=== PATIENT | female | born 1985 ===

== ENCOUNTER 2020-08-15 13:54 | Emergency (ER) | payer OTHER, SELFPAY ==
[2020-08-15 14:08] VITALS: BP 103/65; PULSE 74; RESP 20; TEMP 37.2; O2SAT 99
[2020-08-15 19:47] VITALS: BP 108/58; PULSE 80; RESP 14; TEMP 37.1; O2SAT 98
--- NOTE | 2020-08-15 19:47 | ED.EXTPRO ---
HPI - Extremity Problem General Chief complaint: Extremity Problem,Nontraumatic Stated complaint: PAIN IN BOTH ARMS Time Seen by Provider: 08/15/20 19:40 Source: patient Mode of arrival: Ambulatory Limitations: no limitations History of Present Illness HPI Narrative: Patient is a 34-year-old female here for evaluation of bilateral with right being greater than left arm pain. She states that the symptoms she is having now been going on for the past couple days but she has had very similar symptoms several months ago. She saw provider and received a steroid shot in her right shoulder that she states made the pain worse for very short time afterwards but then completely resolve the symptoms. She does have some tingling down into her hands. She now has left arm pain which she did not have a couple months ago. No chest pain. She is here asking for repeat steroid shot. Related Data Previous Rx's Medication Instructions Recorded prednisone 20 mg PO DAILY 6 Days #6 tab 08/15/20 Allergies Allergy/AdvReac Type Severity Reaction Status Date / Time No Known Drug Allergies Allergy Verified 08/15/20 19:48 Review of Systems Constitutional Constitutional: Denies fever(s) Cardiovascular Cardiovascular: Denies chest pain Musculoskeletal Musculoskeletal: Reports tingling Comments: Bilateral arm pain Integumentary/Breasts Skin/Breast: Denies rash Neurologic Neurologic: Reports tingling Hematologic/Lymphatic On Anticoagulants: No Allergic/Immunologic Allergic/Immunologic: Reports system reviewed and no additional complaints, except as documented Patient History Medical History Healthy adult Social History Smoking Status: Never smoker Smoking Status: Never smoker Exam Initial Vital Signs Initial Vital Signs: Vital Signs Temperature 98.9 F 08/15/20 14:08 Pulse Rate 74 08/15/20 14:08 Respiratory Rate 20 08/15/20 14:08 Blood Pressure 103/65 08/15/20 14:08 Pulse Oximetry 99 08/15/20 14:08 Const General: cooperative and comfortable Limitations: mental status not altered [facility] Head: normal to inspection and normocephalic Cardio Pulses: radial pulses present bilaterally Skin Lesions: no lesions Rashes: no rashes Neuro General: patient alert and patient awake Cognition: normal cognition Sensory Exam: no sensory deficits noted Extrem Other: Patient has full range of motion of her left shoulder and left elbow. With her right shoulder she does cause discomfort when she raises her left arm above the level of her shoulder. She has no pain to her left. Left wrist is unremarkable. Psych Appearance: grossly normal and well kempt Course Orders Ordered: Discontinued Medications Prednisone (Prednisone 20 Mg Tablet) 20 mg PO NOW ONE Stop: 08/15/20 19:48 Last Admin: 08/15/20 19:53 Dose: 20 mg Documented by: BREE Vital Signs Vital signs: Vital Signs - 8 hr 08/15/20 19:47 Temperature 98.8 F Pulse Rate 80 Respiratory Rate 14 Blood Pressure 108/58 L Pulse Oximetry 98 MDM - Extremity (Nontraumatic) MDM Narrative Medical decision making narrative: Unfortunately we were unable to provide a intra-articular steroid injection. I do suspect this is impingement syndrome based on her clinical presentation. Will send her home with a short course of oral steroids she had good result with this in the past. She was given return precautions follow-up instructions. She expressed understanding agreement Discharge Plan Departure Patient Disposition: Home Clinical Impression: Bilateral shoulder pain Instructions: DI for Shoulder Pain Activity Restrictions/Additional Instructions: I recommend you contact the health pharmacy resource tech at [phone]. This individual can help you establish a primary doctor here in the area. Take the prednisone as directed. Return to the emergency department for any new or worsening symptoms Prescriptions: New prednisone 20 mg tablet 20 mg PO DAILY 6 Days Qty: 6 RF: 0
[2020-08-15] MEDS: predniSONE 20 MG TABLET PO (19:53)
== END 2020-08-15 20:01 | disposition home or self-care (01) ==
PROVIDERS: Emergency Provider Emergency Medicine
DX: M25.512 Pain in left shoulder (principal); M25.511 Pain in right shoulder
CPT/HCPCS: 99283

== ENCOUNTER 2022-06-04 22:59 | Emergency (ER) | payer OTHER, SELFPAY ==
--- NOTE | 2022-06-04 23:09 | DI.RAD.S_ITS ---
PROCEDURE: XR CHEST 2V INDICATIONS: chest pain, cough TECHNIQUE: 2 views of the chest were acquired. COMPARISON: None. FINDINGS: Surgical changes and devices: None. Lungs and pleura: Lungs are clear. No pleural effusions or pneumothorax. Mediastinum: Mediastinal contours are normal. Heart size is normal. Bones and chest wall: No suspicious bony abnormalities. Soft tissues appear unremarkable. IMPRESSION: 1. No acute cardiopulmonary disease. Dictated by: Dylon England M.D. on 06/05/2022 at 1:06 Approved by: Dylon England M.D. on 06/05/2022 at 1:06
[2022-06-04 23:19] VITALS: BP 143/82; PULSE 87; RESP 16; TEMP 37; O2SAT 100; BMI 23.6
[2022-06-05 01:09] LABS: Adenovirus Not Detected (Not Detect); B. parapertussis Not Detected (Not Detecte); Bordetella pertussis Not Detected (Not Detecte); Chlamydophila pneumoniae Not Detected (Not Detect); Coronavirus 229E Not Detected (Not Detect); Coronavirus HKU1 Not Detected (Not Detect); Coronavirus NL 63 Not Detected (Not Detect); Coronavirus OC43 Not Detected (Not Detect); Human Metapneumovirus Not Detected (Not Detect); Human Rhinovirus/Enterovirus Not Detected (Not Detect); Influenza A Not Detected (Not Detect); Influenza B Not Detected (Not Detect); Mycoplasma pneumoniae Not Detected (Not Detect); Parainfluenza Virus 1 Not Detected (Not Detect); Parainfluenza Virus 2 Not Detected (Not Detect); Parainfluenza Virus 3 Not Detected (Not Detect); Parainfluenza Virus 4 Not Detected (Not Detect); Respiratory Syncytial Virus Not Detected (Not Detect); SARS- CoV-2 Not Detected (Not Detecte)
[2022-06-05 01:56] VITALS: BP 142/81; PULSE 81; RESP 16; TEMP 36.8; O2SAT 100
--- NOTE | 2022-06-06 18:00 | ED.URI ---
HPI - URI/Sore Throat General Chief Complaint: Upper Respiratory Symptoms Stated Complaint: painful cough, chest pain Time Seen by Provider: 06/04/22 23:09 Source: patient Mode of arrival: Ambulatory History of Present Illness HPI Narrative: 36-year-old female nonsmoker presents with a harsh, painful cough with sputum production since last Saturday. She denies specific fever or runny nose but has had the occasional episode of nasal congestion. She has no nausea, vomiting or diarrhea. She denies recent travel, history of blood clot or cancer. She does not think she is necessarily been around anybody with similar symptoms. Related Data Previous Rx's Medication Instructions Recorded benzonatate 200 mg capsule 200 mg PO BID PRN cough #20 caps 06/05/22 doxycycline hyclate 100 mg tablet 100 mg PO BID #20 tabs 06/05/22 Allergies Allergy/AdvReac Type Severity Reaction Status Date / Time No Known Drug Allergies Allergy Verified 05/28/22 08:38 Review of Systems Review of Systems Narrative: GENERAL: See HPI HEENT: See HPI RESPIRATORY: See HPI CARDIOVASCULAR: Denies chest pain, palpitations, orthopnea, edema, GASTROINTESTINAL: Denies nausea, vomiting, abdominal pain, diarrhea, constipation, melena. : Denies dysuria, frequency, incontinence, hematuria, urinary retention. MUSCULOSKELETAL: denies weakness, joint pain, or bony pain SKIN: Denies rash, skin lesions, or other NEUROLOGIC: Denies weakness, headache, numbness, change in speech, confusion, seizures, incoordination. PSYCHIATRIC: No concerning psychosocial issues. 12 point review of systems is negative except for those stated above Patient History Medical History Healthy adult Social History Smoking Status: Never smoker Smoking Status: Never smoker Substance Use Type: does not use Exam Narrative Exam Narrative: GENERAL: [36] year old patient appears stated age. Well-developed patient, in mild distress. HEAD: Atraumatic. Normocephalic. EYES: Pupils equal round and reactive. Extraocular motions intact. No scleral icterus. No injection or drainage. ENT: Nose without bleeding, purulent drainage. Throat without erythema, tonsillar hypertrophy or exudate. Airway patent. NECK: Trachea midline. Non tender CARDIOVASCULAR: Regular rate and rhythm without murmurs, gallops, or rubs. RESPIRATORY: Clear to auscultation. Breath sounds equal bilaterally. No wheezes, rales, or rhonchi. Occasional harsh sounding cough GASTROINTESTINAL: Abdomen soft, non-tender, nondistended. EXTREMITIES: No edema or joint tenderness. BACK: Nontender without deformity or crepitance. No flank tenderness. NEURO: AOx3. SKIN: No rash or erythema of visible areas Initial Vital Signs Initial Vital Signs: Vital Signs Temperature 98.6 F 06/04/22 23:19 Pulse Rate 87 06/04/22 23:19 Respiratory Rate 16 06/04/22 23:19 Blood Pressure 143/82 H 06/04/22 23:19 Pulse Oximetry 100 06/04/22 23:19 Oxygen Delivery Method Room Air 06/04/22 23:19 Course Orders Ordered: Discontinued Medications Doxycycline Hyclate (Doxycycline Hyclate 100 Mg Tablet) 100 mg PO NOW ONE Stop: 06/05/22 01:46 MDM - URI/Sore Throat Lab Data Labs: Lab Results 06/04/22 Range/Units 23:22 Chlamy pneumoniae PCR Not detected (Not Detect) Adenovirus (PCR) Not detected (Not Detect) B. pertussis DNA (PCR) Not detected (Not Detecte) B.parapertussis DNA PCR Not detected (Not Detecte) Coronavirus OC43 (PCR) Not detected (Not Detect) Coronavirus HKU1 (PCR) Not detected (Not Detect) Coronavirus 229E (PCR) Not detected (Not Detect) SARS-CoV-2 (PCR) Not detected (Not Detecte) Coronavirus NL63 (PCR) Not detected (Not Detect) Human Metapneumovir PCR Not detected (Not Detect) Influenza Type A (PCR) Not detected (Not Detect) Influenza Type B (PCR) Not detected (Not Detect) M. pneumoniae (PCR) Not detected (Not Detect) Parainfluenza 1 (PCR) Not detected (Not Detect) Parainfluenza 2 (PCR) Not detected (Not Detect) Parainfluenza 3 (PCR) Not detected (Not Detect) Parainfluenza 4 (PCR) Not detected (Not Detect) RSV (PCR) Not detected (Not Detect) Entero/Rhino (PCR) Not detected (Not Detect) MDM Narrative Medical decision making narrative: [36] year old patient presents with upper respiratory complaints and productive cough Multiple etiologies for patient's symptoms considered including, but not limited to: [Pneumonia versus atypical pneumonia versus flu versus COVID versus RSV versus other] Prior Charts reviewed in our EMR Primary Historian: patient Labs reviewed and interpreted by myself: Viral upper respiratory panel without significant findings Imaging reviewed: No acute process Patient with reassuring history and physical exam, respiratory panel is clear and no findings on chest x-ray. Vitals are stable. Given duration of symptoms and sputum production we discussed treating for atypical pneumonia. Findings and discharge diagnosis discussed with patient/family followed by verbalization of understanding Return precautions discussed with patient/family whom verbalize understanding of diagnosis and plan Discharge Plan Departure Patient Disposition: Home Clinical Impression: Atypical pneumonia Instructions: DI for Atypical Pneumonia Activity Restrictions/Additional Instructions: *You have been diagnosed with [atypical pneumonia] *What to do: *Please continue to take your regular medications as directed. [x ] New medication prescriptions sent to your pharmacy: [[facility] ] [ ] New medication written as a paper prescription [ ] No new medications given *Please follow up with your primary care provider in 2-3 days, call for an appointment. Let them know you were seen in the Emergency Department and that we ask that you be seen in follow up. We will electronically transmit a record of today's note if your PCP is in our system *If you do not have a primary care provider please contact the [facility] Resource line at [phone]. They will ask some questions about your medical history and help get you set up with a doctor in the community. *Return to Emergency Department if you should have any new, worsening or concerning symptoms, such as [fever greater than 101 F, shaking chills, worsening pain, persistent vomiting or other bothersome symptoms] Prescriptions: New benzonatate 200 mg capsule 200 mg PO BID PRN (Reason: cough) Qty: 20 0RF doxycycline hyclate 100 mg tablet 100 mg PO BID Qty: 20 0RF Referrals: Ayana Aleman ARNP [Primary Care Provider] - Stand Alone Forms: Patient Portal/API, Work Release Note
== END 2022-06-05 01:57 | disposition home or self-care (01) ==
PROVIDERS: Emergency Provider Emergency Medicine; PCP Nurse Practitioner Family
DX: J18.9 Pneumonia, unspecified organism (principal); Z20.822 Contact with and (suspected) exposure to COVID-19
CPT/HCPCS: 71046; 87633; 99281; 99283

== ENCOUNTER → 2022-06-11 09:29 | Outpatient (CLI) | payer OTHER, SELFPAY ==
--- NOTE | 2022-06-11 09:30 | DI.MG.S_ITS ---
BILATERAL DIGITAL DIAGNOSTIC MAMMOGRAM 3D/2D: 06/11/2022 CLINICAL: Right lump. Baseline. No prior exams were available for comparison. Both breasts are extremely dense, which lowers the sensitivity of mammography (category d />75% glandular tissue). There is a 1.6 cm round low density asymmetry with an indistinct and circumscribed margin in the right breast at 5 o'clock posterior depth. This is seen in additional views. This correlates as palpated. No other significant masses, calcifications, or other findings are seen in either breast. IMPRESSION: INCOMPLETE: NEEDS ADDITIONAL IMAGING EVALUATION The 1.6 cm round low density asymmetry in the right breast correlates with the palpable abnormality but remains indeterminate. An ultrasound is recommended. This was performed immediately following this exam. Based on the Tyrer Cuzick model (a risk assessment model) the patient's lifetime risk is 13.0% and her 10 year risk is 1.3%. According to the ACR, ACS, and NCCN guidelines, an annual breast MRI exam along with mammogram is recommended if the patient's lifetime risk is 20% or greater. This exam was interpreted at Station ID: [id number]. NOTE: For mammograms, a report in lay terms will be sent to the patient. Approximately 15% of breast malignancies will not be visualized mammographically. In the management of a palpable breast mass, a negative mammogram must not discourage biopsy of a clinically suspicious lesion. Electronically Signed By: Patsy pimentel/:06/11/2022 10:34:12 ACR BI-RADS Category 0: Incomplete [id number]
--- NOTE | 2022-06-11 09:30 | DI.US.S_ITS ---
LIMITED ULTRASOUND OF RIGHT BREAST AND AXILLA: 06/11/2022 CLINICAL: Right breast lump. No prior exams were available for comparison. Color flow, real-time, and continuous wave Doppler ultrasound of the right breast 6 o'clock, and axilla regions were performed. Sauceda scale images of the real-time examination were reviewed. There is a 1.9 cm x 1.7 cm x 1.2 cm oval partially cystic and solid mass in the right breast at 6 o'clock posterior depth 3 cm from the nipple. This mass displays posterior acoustic enhancement. This correlates as palpated and with mammography findings. There are punctate echogenic reflectors, possibly calcifications within the mass. Color flow imaging demonstrates that there is vascularity present. No significant abnormalities were seen sonographically in the right axilla. IMPRESSION: SUSPICIOUS OF MALIGNANCY The 1.9 cm mass in the right breast corresponds to the palpable abnormality, has a differential diagnosis of a complex cyst, a solid mass, or a hematoma, and malignancy is not excluded. An ultrasound guided biopsy is recommended. Findings and recommendations were discussed with the patient in person by Dr. Med Cruz at time of exam. This exam was interpreted at Station ID: [id number]. Electronically Signed By: Patsy pimentel/:06/11/2022 11:34:38 letter sent: Biopsy Required Ultrasound BI-RADS: 4 Suspicious for malignancy
== END ==
PROVIDERS: PCP Nurse Practitioner Family; Referring Provider Nurse Practitioner Family; Visit Provider Nurse Practitioner Family
DX: N63.14 Unspecified lump in the right breast, lower inner quadrant (principal); R92.8 Other abnormal and inconclusive findings on diagnostic imaging of breast
CPT/HCPCS: 76642; 77066; G0279

== ENCOUNTER → 2022-06-20 14:09 | Outpatient (CLI) | payer OTHER, SELFPAY ==
--- NOTE | 2022-06-20 | PATH_ITS ---
[facility] Accession Number: [id number] No. of containers..01 Tissue . 01 Material submitted: . breast - RIGHT BREAST 6:00 3CMFN MASS . 01 Diagnosis: Right Breast, 6 o'clock, 3 cm from Nipple, Image-Guided Core Biopsy: Fibroepithelial lesion, consistent with fibroadenoma. Negative for significant atypia and malignancy. MRV 06/26/2022 1659 Local . 01 Comment: *Immunostains to e-cadherin, cytokeratin 5/6, and estrogen receptor are performed, with the controls stained appropriately. The e-cadherin is uniformly positive on the epithelium excluding involvement by lobular neoplasia/hyperplasia. 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 Manufacturing Finance Manager slides of this case are also reviewed by Dr. Carmita Salinas who concurs with the given interpretation. . * This test was developed and its performance characteristics determined by [employer]. It has not been cleared or approved by the U.S. Food and Drug Administration. The FDA has determined that such clearance or approval is not necessary. This test is used for clinical purposes. It should not be regarded as investigational or for research. . 01 Electronically signed: . Elis Ballard MD, Pathologist NPI- [id number] . 01 Gross description: . The specimen is received in formalin labeled with the patient's name, , and bx breast, and consists of multiple marmolejo soft tissue fragments aggregating to 1.1 x 0.9 x 0.2 cm. The specimen is inked blue and submitted entirely in cassette A1. The specimen was removed on 06/20/2022 at 1503 hours, time in formalin not provided, cold ischemic time cannot be calculated, total fixation time is approximately 27 hours. ([id number]) /DEEPA 06/21/2022 1201 Local . 01 Pathologist provided ICD-10: D24.9 . 01 CPT . 876633, C55034, T43804 Performed at: 01 [facility] [address] [place] [address] [address] [facility], [place], [place] [id number] MD Dylon Spain MD Phone: [phone]
--- NOTE | 2022-06-20 14:16 | DI.US.S_ITS ---
Patient Name: IHSAN RICHEY date: 1985 Sex: F Attending Physician: Socorro Indications: Date: 06/29/2022 10:45 At the request of: NATAN MORALES Procedure: US bx breast perc w vac device ULTRASOUND GUIDED BIOPSY RIGHT BREAST USING VACUUM DEVICE WITH MARKING DEVICE INSERTED AND POST MAMMOGRAPHIC IMAGIN06/20/2022 CLINICAL: Right breast mass. PATIENT CONSENT: Risks (minor bleeding, infection, vasovagal reaction and repeat procedure), benefits and alternatives were explained to the patient and written informed consent was obtained. Correlation is made to exams dated: 06/11/2022 ultrasound and 06/11/2022 mammogram - [facility]. An ultrasound guided biopsy using real-time ultrasound was performed for the concerning 1.9 cm x 1.7 cm x 1.2 cm partially solid mass located in the right breast at 6 o'clock posterior depth 3 cm from the nipple. This was described on the previous ultrasound report. The skin was prepped in the usual manner. Local anesthetic was administered to the access site. A skin alfonso was made in the breast. The abnormality was approached from the lateral aspect. A 13 gauge biopsy needle was placed adjacent to the abnormality under ultrasound guidance. Once the needle was documented to be in the correct location, four specimens were obtained using a vacuum assisted device. A clip was inserted into the biopsy cavity. Post procedure mammographic imaging demonstrates the location device at the targeted area. The specimens were sent to the laboratory for pathological analysis. IMPRESSION: ULTRASOUND GUIDED BIOPSY BENIGN Ultrasound guided biopsy of the 1.9 cm x 1.7 cm x 1.2 cm partially solid mass in the right breast at 6 o'clock posterior depth 3 cm from the nipple was successful. Continued Report - Page 2 of 2 Patient Name: IHSAN RICHEY date: 1985 Sex: F Attending Physician: Socorro Indications: Date: 06/29/2022 10:45 At the request of: NATAN MORAELS Procedure: US bx breast perc w vac device Pathology indicates benign fibroadenoma (FA). Pathology results are concordant with imaging findings. A 1 year screening mammogram is recommended. This exam was interpreted at Station ID: [id number]. Nick Moe M.D. ,slc/:06/29/2022 10:45:58
--- NOTE | 2022-06-20 15:08 | DI.MG.S_ITS ---
Patient Name: IHSAN RICHEY date: 1985 Sex: F Attending Physician: Socorro Indications: Date: 06/27/2022 08:43 At the request of: NATAN MORALES Procedure: MM diagnostic mammo [id number] UNILATERAL RIGHT DIGITAL DIAGNOSTIC MAMMOGRAM 3D/2D: 06/20/2022 CLINICAL: Right breast Mass. Comparison is made to exams dated: 06/11/2022 ultrasound and 06/11/2022 mammogram - [facility]. The right breast is extremely dense, which lowers the sensitivity of mammography (category d />75% glandular tissue). There is a marker clip in the appropriate position in the right breast at 5 o'clock posterior depth. IMPRESSION: POST PROCEDURE MAMMOGRAM FOR MARKER PLACEMENT There was a successful marker clip placement in the right breast posterior depth. Based on the Tyrer Cuzick model (a risk assessment model) the patient?s lifetime risk is 13.0% and her 10 year risk is 1.3%. According to the ACR, ACS, and NCCN guidelines, an annual breast MRI exam along with mammogram is recommended if the patient?s lifetime risk is 20% or greater. This exam was interpreted at Station ID: [id number]. NOTE: For mammograms, a report in lay terms will be sent to the patient. Approximately 15% of breast malignancies will not be visualized mammographically. In the management of a palpable breast mass, a negative mammogram must not discourage biopsy of a clinically suspicious lesion. Continued Report - Page 2 of 2 Patient Name: IHSAN RICHEY date: 1985 Sex: F Attending Physician: Socorro Indications: Date: 06/27/2022 08:43 At the request of: NATAN MORALES Procedure: MM diagnostic mammo [id number] Electronically Signed By: Nick Mcdonald M.D. pc/:06/27/2022 08:43:28 ACR BI-RADS Category Post-procedure mammogram for marker placement
== END ==
PROVIDERS: PCP Family Medicine; Referring Provider Family Medicine; Visit Provider Family Medicine
DX: N60.21 Fibroadenosis of right breast (principal)
CPT/HCPCS: 19083; 77065

== ENCOUNTER → 2023-01-16 02:14 | Outpatient (CLI) | payer OTHER, SELFPAY | PROVIDERS: PCP Family Medicine; Referring Provider Family Medicine; Visit Provider Family Medicine | DX: Z23 Encounter for immunization (principal) | CPT/HCPCS: 90471; 90686 ==

== ENCOUNTER 2023-01-30 13:22 | Emergency (ER) | payer OTHER, SELFPAY ==
[2023-01-30 13:41] VITALS: BP 116/67; PULSE 87; RESP 16; TEMP 36.7; O2SAT 99; BMI 22.6
--- NOTE | 2023-01-30 13:47 | DI.RAD.S_ITS ---
PROCEDURE: XR CHEST 2V INDICATIONS: cough for 3 weeks TECHNIQUE: 2 views of the chest were acquired. COMPARISON: [facility], CR, XR CHEST 2V, 06/04/2022, 23:29. FINDINGS: Surgical changes and devices: None. Lungs and pleura: Lungs are clear. No pleural effusions or pneumothorax. Mediastinum: Mediastinal contours are normal. Heart size is normal. Bones and chest wall: No suspicious bony abnormalities. Soft tissues appear unremarkable. IMPRESSION: No acute cardiopulmonary abnormality is seen. Dictated by: Nick Mcdonald M.D. on 01/30/2023 at 14:12 Approved by: Nick Mcdonald M.D. on 01/30/2023 at 14:13
[2023-01-30 14:45] VITALS: BP 110/56; PULSE 70; RESP 18; TEMP 37.1; O2SAT 100
--- NOTE | 2023-01-30 15:17 | ED.URI ---
HPI - URI/Sore Throat <Sandy Newton PA-C - Last Filed: 01/30/23 17:12> General Chief Complaint: Upper Respiratory Symptoms Stated Complaint: cough, chest pain when coughing Time Seen by Provider: 01/30/23 15:08 Source: patient Mode of arrival: Ambulatory History of Present Illness HPI Narrative: Patient is a 37-year-old female presenting for evaluation of 3 weeks of cough with some small amount of daily sputum production. Denies spitting up blood. She states that she started having difficulty breathing over the last week. She states that she feels exhausted. She notes that when she coughs it hurts in her left back and with movement. She denies any history of clot, she denies any surgery within the last 6 weeks. She denies any smoking or estrogen use. She denies fever but does endorse some wheezing. She states she had a little bit of a headache yesterday as well as runny nose. She denies sore throat. She states she is felt achy all week. She notes that she vomited last night and at noon today but denies abdominal pain. She reports no change in smell. She denies pain with urination or urinary frequency. She denies abdominal pain. She says she thinks she vomited because of the food she ate. She reports her last menstrual period was 3 weeks ago. Related Data Previous Rx's Medication Instructions Recorded albuterol sulfate 90 mcg/actuation 2 puff inhalation QID PRN 01/30/23 aerosol inhaler shortness of breath or wheezing #6.7 grams albuterol sulfate 90 mcg/actuation 2 puff inhalation QID PRN 01/30/23 aerosol inhaler shortness of breath or wheezing #6.7 grams azithromycin 250 mg tablet See Rx Instructions PO .COMPLEX #6 01/30/23 tabs benzonatate 200 mg capsule 200 mg PO TID cough 5 days #20 caps 01/30/23 Allergies Allergy/AdvReac Type Severity Reaction Status Date / Time No Known Drug Allergies Allergy Verified 11/12/22 13:03 Review of Systems <Sandy Newton PA-C - Last Filed: 01/30/23 17:12> Review of Systems Narrative: See HPI Patient History <Sandy Newton PA-C - Last Filed: 01/30/23 17:12> Medical History Fibroadenoma of right breast Hyperlipidemia Healthy adult Social History Smoking Status: Never smoker Smoking Status: Never smoker Substance Use Type: does not use Exam <Sandy Newton PA-C - Last Filed: 01/30/23 17:12> Initial Vital Signs Initial Vital Signs: Vital Signs Temperature 98.0 F 01/30/23 13:41 Pulse Rate 87 01/30/23 13:41 Respiratory Rate 16 01/30/23 13:41 Blood Pressure 116/67 01/30/23 13:41 Pulse Oximetry 99 01/30/23 13:41 Oxygen Delivery Method Room Air 01/30/23 13:41 GENERAL: 37 year old patient appears stated age. Well-developed patient, in no acute distress. HEAD: Atraumatic. Normocephalic. EYES: Pupils equal round and reactive. No scleral icterus. No injection or drainage. ENT: Nose without bleeding, purulent drainage. Throat without erythema, tonsillar hypertrophy or exudate. Airway patent. NECK: Trachea midline. Non tender CARDIOVASCULAR: Regular rate and rhythm without murmurs, gallops, or rubs. RESPIRATORY: Clear to auscultation. Breath sounds equal bilaterally. No wheezes, rales, or rhonchi. GASTROINTESTINAL: Abdomen soft, non-tender, nondistended. NEURO: AOx3. SKIN: No rash or erythema of visible areas <Kate Alvarado MD - Last Filed: 01/30/23 18:08> Initial Vital Signs Initial Vital Signs: Vital Signs Temperature 98.0 F 01/30/23 13:41 Pulse Rate 87 01/30/23 13:41 Respiratory Rate 16 01/30/23 13:41 Blood Pressure 116/67 01/30/23 13:41 Pulse Oximetry 99 01/30/23 13:41 Oxygen Delivery Method Room Air 01/30/23 13:41 Course <Sandy Newton PA-C - Last Filed: 01/30/23 17:12> Orders Ordered: ED Orders 01/30/23 13:47 XR chest 2V Stat 01/30/23 15:25 Covid-19 + FLU A/B + RSV - PCR Stat 01/30/23 15:30 Test Urine Stat UA dip and micro [Urinalysis and Microscopic] Stat Vital Signs Vital signs: Vital Signs - 8 hr 01/30/23 13:41 01/30/23 14:45 01/30/23 17:17 Temperature 98.0 F 98.7 F 98.3 F Pulse Rate 87 70 70 Respiratory Rate 16 18 18 Blood Pressure 116/67 110/56 L 115/80 Pulse Oximetry 99 100 99 Oxygen Delivery Method Room Air Room Air Room Air <Kate Alvarado MD - Last Filed: 01/30/23 18:08> Orders Ordered: ED Orders 01/30/23 13:47 XR chest 2V Stat 01/30/23 15:25 Covid-19 + FLU A/B + RSV - PCR Stat 01/30/23 15:30 Test Urine Stat UA dip and micro [Urinalysis and Microscopic] Stat Vital Signs Vital signs: Vital Signs - 8 hr 01/30/23 13:41 01/30/23 14:45 01/30/23 17:17 Temperature 98.0 F 98.7 F 98.3 F Pulse Rate 87 70 70 Respiratory Rate 16 18 18 Blood Pressure 116/67 110/56 L 115/80 Pulse Oximetry 99 100 99 Oxygen Delivery Method Room Air Room Air Room Air MDM - URI/Sore Throat <Sandy Newton PA-C - Last Filed: 01/30/23 17:12> Lab Data Labs: Lab Results 01/30/23 01/30/23 Range/Units 15:25 15:30 Urine Color Yellow Urine Appearance Clear Urine pH 7.0 (4.5-8.0) Ur Specific Morrison 1.020 (1.000-1.035) Urine Protein Negative (Negative) Urine Glucose (UA) Negative (Negative) g/dL Urine Ketones Negative (NEGATIVE) Urine Occult Blood Trace-intact (Negative) Urine Nitrate Negative (Negative) Urine Bilirubin Negative (NEGATIVE) Urine Urobilinogen 0.2 (0.2) E.U./dL Ur Leukocyte Esterase Negative (NEGATIVE) Urine RBC 1-5/hpf (0-5/HPF) Urine WBC 0-1/hpf (0-5/HPF) Ur Squamous Epith Cells 0-1 /hpf (0-5/HPF) Urine Bacteria None seen (None) Ur Culture Indicated? Cult not indicated Urine Test Negative (Negative) SARS-CoV-2 (PCR) Negative (Negative) Influenza A (RT-PCR) Flu a negative (NEGATIVE) Influenza B (RT-PCR) Flu b negative (NEGATIVE) RSV (PCR) Negative (Negative) Imaging Data Chest x-ray: Radiologist's Impression: PROCEDURE: XR CHEST 2V INDICATIONS: cough for 3 weeks TECHNIQUE: 2 views of the chest were acquired. COMPARISON: [facility], , XR CHEST 2V, 06/04/2022, 23:29. FINDINGS: Surgical changes and devices: None. Lungs and pleura: Lungs are clear. No pleural effusions or pneumothorax. Mediastinum: Mediastinal contours are normal. Heart size is normal. Bones and chest wall: No suspicious bony abnormalities. Soft tissues appear unremarkable. IMPRESSION: No acute cardiopulmonary abnormality is seen. Dictated by: Nick Mcdonald M.D. on 01/30/2023 at 14:12 Approved by: Nick Mcdonald M.D. on 01/30/2023 at 14:13 [facility] Narrative Medical decision making narrative: Patient is a 37-year-old female presenting for evaluation of cough for the last 3 weeks with increased difficulty breathing over the last week. Multiple etiologies for patient's symptoms considered including, but not limited to: COVID, flu, RSV, pneumonia, muscle spasm, PE, , gastroenteritis Labs reviewed and interpreted by myself: COVID flu RSV were negative, negative for and UA did not show any evidence of UTI. Imaging reviewed: Chest x-ray showed no evidence of pneumonia or cardiopulmonary abnormality Discussed with patient that symptoms seem consistent with bronchitis. Due to sputum production and 3 weeks of fatigue, body aches and sputum production, recommend treatment with antibiotic for the next week in addition to Tessalon Perles to help improve coughing. Discussed with patient the back pain seems most consistent with a muscle spasm secondary to her persistent coughing. My suspicion for pulmonary embolism is low as patient's heart rate O2 sat were appropriate and she has no known risk factors for PE. However, recommend that she follow up with the ER if she should develop worsening shortness of breast, chest pain or other concerning symptoms. Findings and discharge diagnosis discussed with patient/family followed by verbalization of understanding Return precautions discussed with patient/family whom verbalize understanding of diagnosis and plan <Kate Alvarado MD - Last Filed: 01/30/23 18:08> Lab Data Labs: Lab Results 01/30/23 01/30/23 Range/Units 15:25 15:30 Urine Color Yellow Urine Appearance Clear Urine pH 7.0 (4.5-8.0) Ur Specific Morrison 1.020 (1.000-1.035) Urine Protein Negative (Negative) Urine Glucose (UA) Negative (Negative) g/dL Urine Ketones Negative (NEGATIVE) Urine Occult Blood Trace-intact (Negative) Urine Nitrate Negative (Negative) Urine Bilirubin Negative (NEGATIVE) Urine Urobilinogen 0.2 (0.2) E.U./dL Ur Leukocyte Esterase Negative (NEGATIVE) Urine RBC 1-5/hpf (0-5/HPF) Urine WBC 0-1/hpf (0-5/HPF) Ur Squamous Epith Cells 0-1 /hpf (0-5/HPF) Urine Bacteria None seen (None) Ur Culture Indicated? Cult not indicated Urine Test Negative (Negative) SARS-CoV-2 (PCR) Negative (Negative) Influenza A (RT-PCR) Flu a negative (NEGATIVE) Influenza B (RT-PCR) Flu b negative (NEGATIVE) RSV (PCR) Negative (Negative) Discharge Plan Departure Patient Disposition: Home Clinical Impression: Bronchitis Activity Restrictions/Additional Instructions: You have been seen in the emergency room for evaluation of a cough ongoing for last 3 weeks. You tested negative for COVID flu and RSV. I will provide an albuterol inhaler, cough suppressant: Tessalon Perles in addition to a course of antibiotics due to the persistent sputum production and increased fatigue and back discomfort from your cough. I recommend you take ibuprofen and Tylenol as well for body aches. Recommend continued follow-up in the emergency department if you should develop any chest pain, worsening difficulty breathing or other concerning signs or symptoms. Thank you for coming in today for your care. Prescriptions: New azithromycin 250 mg tablet See Rx Instructions .ROUTE .COMPLEX Qty: 6 0RF Rx Instructions: For 250 mg dose pack: take 500 mg today (day 1), then 250 mg for 4 days (days 2-5) benzonatate 200 mg capsule 200 mg PO TID 5 Days Qty: 20 0RF albuterol sulfate 90 mcg/actuation HFA aerosol inhaler 2 puff inhalation QID PRN (Reason: shortness of breath or wheezing) Qty: 6.7 0RF albuterol sulfate 90 mcg/actuation HFA aerosol inhaler 2 puff inhalation QID PRN (Reason: shortness of breath or wheezing) Qty: 6.7 0RF Referrals: Alma Delia Quintanilla DO [Primary Care Provider] - Stand Alone Forms: Patient Portal/API, Work Release Note ED Sign-out <Kate Alvarado MD - Last Filed: 01/30/23 18:08> Cosign ED Attending Cosignature Attestation: I did not see this patient. I was available all times for consultation.
[2023-01-30 15:48] LABS: Appearance Urine UA CLEAR; Bilirubin Urine UA NEGATIVE (NEGATIVE); Color Urine UA YELLOW; Glucose Urine UA NEGATIVE (Negative); Ketones Urine UA NEGATIVE (NEGATIVE); Leukocyte Esterase Urine UA NEGATIVE (NEGATIVE); Nitrite Urine UA NEGATIVE (Negative); Occult Blood Urine UA TRACE-INTACT (Negative); Protein Urine UA NEGATIVE (Negative); Urobilinogen Urine UA 0.2 E.U./dL (0.2)
[2023-01-30 15:51] LABS: Pregnancy Test Urine Negative (Negative)
[2023-01-30 15:58] LABS: Bacteria Urine None Seen; Culture Indicated Urine Cult Not Indicated; RBC Urine 1-5/HPF (0-5/HPF); Squamous Epithelial Cell Urine 0-1 /HPF (0-5/HPF); WBC Urine 0-1/HPF (0-5/HPF)
[2023-01-30 16:14] LABS: Influenza A - CEPHEID Flu A NEGATIVE (NEGATIVE); Influenza B - CEPHEID Flu B NEGATIVE (NEGATIVE); Respiratory Syncytial Virus Negative (Negative)
[2023-01-30 16:35] LABS: COVID-19 CEPHEID 4-PLEX PCR Negative (Negative)
[2023-01-30 17:17] VITALS: BP 115/80; PULSE 70; RESP 18; TEMP 36.8; O2SAT 99
== END 2023-01-30 17:18 | disposition home or self-care (01) ==
PROVIDERS: Emergency Provider Physician Assistant; PCP Family Medicine
DX: J40 Bronchitis, not specified as acute or chronic (principal)
CPT/HCPCS: 0241U; 71046; 81001; 81025; 99282; 99284